=== PATIENT | female | born 1945 | race Caucasian/White ===

== ENCOUNTER 2016-09-23 07:18 | Inpatient (IN) ==
[2016-09-19 16:34] LABS: Basophils # (Auto) 0.1 K/mcL (0.0-0.3); Basophils % (Auto) 0.5 % (0.0-2.0); Eosinophils # (Auto) 0.2 K/mcL (0.0-0.7); Eosinophils % (Auto) 1.6 % (0.0-7.0); Granulocytes % (Auto) 63.5 % (38.0-78.0); Lymphocytes # (Auto) 3.3 K/mcL (1.5-4.8); Lymphocytes % (Auto) 23.2 % (15.5-49.0); Mean Cell Volume 85.1 fL (80.0-100.0); Mean Corpuscular Hemoglobin 28.1 pg (26.0-34.0); Monocytes # (Auto) 1.6 K/mcL (0.1-0.9); Monocytes % (Auto) 11.2 % (1.0-12.0); Platelet Count 414 K/mcL (140-440); RBC 4.69 M/mcL (4.00-5.20)
[2016-09-19 16:56] LABS: Blood Urea Nitrogen 15 mg/dl (8-23)
[2016-09-22 18:45] LABS: Appearance,Urine HAZY; Bacteria,Urine 0 /hpf (0); Bilirubin,Urine NEG (NEG); Color,Urine YELLOW; Glucose,Urine (UA) NEGATIVE (NEG); Leukocyte Esterase,Urine 500 /uL (NEG); Nitrate,Urine NEG (NEG); Protein,Urine NEG (NEG); Specific Gravity,Urine 1.015 (1.000-1.035); Urine Blood NEG mg/dL (<0.03); Urine RBC 3 /hpf (0-1); Urine Squamous Epithelial Cell 12 /hpf (0-4); Urine Transitional Epi Cells 1 /hpf (0-2); Urine WBC 38 /hpf (0-4); Urobilinogen,Urine NEG (NEG)
[~2016-09-23 07:18] MED LIST: ACETAMINOPHEN 500 MG TABLET PO SCH; CELECOXIB 200 MG CAPSULE PO SCH; PREGABALIN 75 MG CAPSULE PO SCH; ceFAZolin 1 GM VIAL IV SCH; oxyCODONE 10 MG TAB.ER.12H PO SCH
[2016-09-23] MEDS ORDERED: IPRATROPIUM/ALBUTEROL 3 ML AMPUL.NEB NEB ONE ×2 (10:36→10:37)
[2016-09-23] MEDS ORDERED: MIDAZOLAM 2 MG/2 ML VIAL IV ONE (11:00)
[2016-09-23] MEDS ORDERED: SUCCINYLCHOLINE 20 MG/ML ML IV ONE (11:00)
[2016-09-23] MEDS ORDERED: DEXAMETHASONE 10 MG/ML VIAL IV ONE (11:00)
[2016-09-23] MEDS ORDERED: LIDOCAINE HCL/PF 100 MG/5 ML SYRINGE IV ONE (11:00)
[2016-09-23] MEDS ORDERED: KETAMINE 100 MG/ML ML IV ONE (11:00)
[2016-09-23] MEDS ORDERED: ONDANSETRON 4 MG/2 ML VIAL IV ONE (11:00)
[2016-09-23] MEDS ORDERED: PROPOFOL 200 MG/20 ML VIAL IV ONE (11:00)
[2016-09-23] MEDS ORDERED: PHENYLEPHRINE 10 MG/ML VIAL IV ONE (11:00)
[2016-09-23] MEDS ORDERED: TRANEXAMIC ACID 1,000 MG/10 ML VIAL IV ONE ×2 (11:00→12:33)
[2016-09-23] MEDS ORDERED: GENTAMICIN SULFATE 800 MG/20 ML VIAL IR ONE (11:24)
[2016-09-23] MEDS ORDERED: diphenhydrAMINE 50 MG/ML VIAL IV PRN (12:13)
[2016-09-23] MEDS ORDERED: PROMETHAZINE 25 MG/ML VIAL IV PRN (12:13)
[2016-09-23] MEDS ORDERED: FLUMAZENIL 0.1 MG/ML ML IV PRN (12:13)
[2016-09-23] MEDS ORDERED: ePHEDrine 50 MG/ML AMPUL IV PRN (12:13)
[2016-09-23] MEDS ORDERED: METHOCARBAMOL 1,000 MG/10 ML VIAL IV PRN (12:13)
[2016-09-23] MEDS ORDERED: MEPERIDINE 50 MG/ML SYRINGE IM PRN (12:13)
[2016-09-23] MEDS ORDERED: NALOXONE HCL 0.4 MG/ML VIAL IV PRN (12:13)
[2016-09-23] MEDS ORDERED: ONDANSETRON 4 MG/2 ML VIAL IV PRN ×2 (12:13→12:33)
[2016-09-23] MEDS ORDERED: HYDROmorphone 2 MG/ML SYRINGE IV PRN ×2 (12:13→12:33)
[2016-09-23] MEDS ORDERED: IPRATROPIUM/ALBUTEROL 3 ML AMPUL.NEB NEB PRN (12:13)
[2016-09-23] MEDS ORDERED: MEPERIDINE 25 MG/ML SYRINGE IV PRN (12:13)
[2016-09-23] MEDS ORDERED: LACTATED RINGERS 250 ML IV PRN (12:13)
[2016-09-23] MEDS ORDERED: fentaNYL 100 MCG/2 ML VIAL IV PRN (12:13)
[2016-09-23] MEDS ORDERED: BENZOCAINE/MENTHOL 1 LOZENGE PO PRN ×2 (12:13→12:33)
[2016-09-23] MEDS ORDERED: PROMETHAZINE 25 MG/ML VIAL IM PRN (12:13)
[2016-09-23] MEDS ORDERED: LACTATED RINGERS 1,000 ML IV SCH (12:15)
[2016-09-23] MEDS ORDERED: FLEETS ADULT ENEMA PR PRN (12:33)
[2016-09-23] MEDS ORDERED: MAGNESIUM HYDROXIDE 30 ML ORAL.SUSP PO PRN (12:33)
[2016-09-23] MEDS ORDERED: POLYETHYLENE GLYCOL 3350 17 GM PACKET PO PRN (12:33)
[2016-09-23] MEDS ORDERED: ACETAMINOPHEN 325 MG TABLET PO PRN (12:33)
[2016-09-23] MEDS ORDERED: TEMAZEPAM 15 MG CAPSULE PO PRN (12:33)
[2016-09-23] MEDS ORDERED: BISACODYL 10 MG SUPP.RECT PR PRN (12:33)
[2016-09-23] MEDS ORDERED: KETOROLAC 15 MG/ML VIAL IV PRN (12:33)
[2016-09-23] MEDS ORDERED: EMOLL TOPICAL PRN (12:37)
[2016-09-23] MEDS ORDERED: traMADol 50 MG TABLET PO PRN (12:37)
[2016-09-23] MEDS ORDERED: CLOBETASOL PROPIONATE TOPICAL PRN (12:37)
--- NOTE | 2016-09-23 13:26 | XRay Report ---
HISTORY: Reason for Exam:Post-Op Total Hip FINDINGS: There is a well-positioned left total hip prosthesis. No fracture is present. There are dystrophic calcifications adjacent to the greater trochanters bilaterally. Moderate disc space narrowing and arthritis is present at L4-5 and possibly L5-S1. IMPRESSION: Well-positioned left hip prosthesis Interpreted and Authenticated by: Isacc Horne 09/23/16
--- NOTE | 2016-09-23 13:52 | Operative Note ---
DATE OF OPERATION: 09/23/2016 PREOPERATIVE DIAGNOSIS: Left hip degenerative arthritis. POSTOPERATIVE DIAGNOSIS: Left hip degenerative arthritis. PROCEDURE: Left total hip arthroplasty. SURGEON: Baldemar Zhao MD. MIXING TECHNICIAN: Monty Rice PA-C. ANESTHESIA: General LMA anesthesia. COMPLICATIONS: None. IMPLANTS: A size 50 mm cup with a 35 mm screw as well as a dual mobility liner, a size 5 cementless stem, a ceramic head with neutral neck length and dual mobility ball. ESTIMATED BLOOD LOSS: About 20 mL. COMPLICATIONS: None. DESCRIPTION OF PROCEDURE: The patient was brought to the operating room and put to sleep with general LMA anesthesia. Once asleep, the patient had the left hip sterilely prepped and draped in the usual sterile fashion. Once this was confirmed as the operative site, both by x-ray and time out and initials, the hip was sterilely prepped and draped in the usual sterile fashion. We made a superior posterior approach. This went through the fascial layer. A Charnley retractor was placed. A superior posterior release of the capsule was done and dislocated the hip. Once this was done and we dislocated the hip, we then made our neck cut at 34 mm from the center of hip rotation and then broached up to a size 5. We trialed the size 5 stem on the broach, a neutral length ball. This seemed a little long. We reamed up on the acetabulum to size 50, implanted a 50 cup with a 35 mm screw and a dual mobility liner. Once this was done, we then broached up to size 5 on the femur again. We countersunk the stem, neutral neck length and dual mobility ball was confirmed, and the x-ray confirmed equal leg lengths. We then placed the final implants with a size 5 femur, a ceramic 28 head, neutral neck length and a dual mobility outer ball. This seemed to fit very well with stability up to 80 degrees of internal rotation with the hip abducted. The patient tolerated this well without complication. We irrigated thoroughly and repaired the posterior capsule with #2 Ethibond, closed the fascial layer with#2 Ethibond and #1 Vicryl, and closed the skin with 2-0 Vicryl and lynda superficially. The patient tolerated this well. There was no complication. JANES:ayana Job ID: [id number] Doc ID: [id number] Baldemar Zhao MD
[2016-09-23] MEDS: 0.9 % SODIUM CHLORIDE 10 ML SYRINGE IV SCH ×2 (14:55→22:08)
--- NOTE | 2016-09-23 15:55 | Brief Operative Note ---
Date of procedure: 09/23/16 Pre-op diagnosis: left hip djd Post-op diagnosis: same Procedure: left hip alfred Grafts/Implants: Yes Anesthesia: GETA Complications: none Surgeon: Baldemar Zhao Silk Weaver: Monty Rice Estimated blood loss (cc): 100 Specimens Removed/Pathology: none sent Condition: stable Disposition: PACU
[2016-09-23] MEDS: HYDROCODONE/APAP 7.5/325MG TABLET PO PRN ×2 (16:15→23:58)
[2016-09-23] MEDS: 0.45 % SODIUM CHLORIDE 1,000 ML IV SCH (16:16)
[2016-09-23] MEDS: ceFAZolin 1 GM VIAL IV SCH (19:28)
[2016-09-23] MEDS ORDERED: SENNOSIDES 1 TABLET PO SCH (21:00)
[2016-09-23] MEDS: DOCUSATE SODIUM 100 MG CAPSULE PO SCH (22:05)
[2016-09-23] MEDS: Budesonide/Formoterol Fumarate [Symbicort] 160/4.5 mcg Inhaler INH SCH (22:06)
[2016-09-23] MEDS: ASPIRIN 325 MG ENTERIC COATED TABLET PO SCH (22:06)
[2016-09-23] MEDS: sulfaSALAzine 500 MG TABLET PO SCH (22:07)
[2016-09-23] MEDS: CELECOXIB 200 MG CAPSULE PO SCH (22:09)
[2016-09-24] MEDS: 0.45 % SODIUM CHLORIDE 1,000 ML IV SCH ×2 (02:20→09:14)
[2016-09-24] MEDS: ceFAZolin 1 GM VIAL IV SCH (03:32)
[2016-09-24] MEDS: 0.9 % SODIUM CHLORIDE 10 ML SYRINGE IV SCH (05:48)
[2016-09-24] MEDS ORDERED: LEVOTHYROXINE 125 MCG TABLET PO SCH (07:30)
[2016-09-24] MEDS ORDERED: LEVOTHYROXINE 100 MCG TABLET PO SCH (07:30)
[2016-09-24] MEDS ORDERED: PANTOPRAZOLE 40 MG TABLET PO SCH (07:30)
[2016-09-24] MEDS ORDERED: FLUTICASONE PROPIONATE SPRAY.NAS NS SCH (09:00)
[2016-09-24] MEDS ORDERED: FOLIC ACID 1 MG TABLET PO SCH (09:00)
[2016-09-24] MEDS ORDERED: CALCIUM W/VIT D3 500 MG TABLET PO SCH (09:00)
[2016-09-24] MEDS ORDERED: OLMESARTAN MEDOXOMIL 20 MG TABLET PO SCH (09:00)
[2016-09-24] MEDS ORDERED: HYDROCHLOROTHIAZIDE 12.5 MG CAPSULE PO SCH (09:00)
[2016-09-24] MEDS ORDERED: MULTIVIT,THER IRON,CA,FA & MIN 1 TABLET PO SCH (09:00)
[2016-09-24] MEDS ORDERED: FLAXSEED OIL 2000 MG PO SCH (09:00)
[2016-09-24] MEDS ORDERED: ESTROPIPATE 0.75 MG TABLET PO SCH (09:00)
[2016-09-24] MEDS ORDERED: VITAMIN D3 1,000 UNIT TABLET PO SCH (09:00)
[2016-09-24] MEDS ORDERED: ASPIRIN 81 MG TAB.CHEW CHEWED SCH (09:00)
[2016-09-24] MEDS ORDERED: sulfaSALAzine 500 MG TABLET PO SCH (09:00)
[2016-09-24] MEDS: ASPIRIN 325 MG ENTERIC COATED TABLET PO SCH (09:00)
[2016-09-24] MEDS: DOCUSATE SODIUM 100 MG CAPSULE PO SCH (09:01)
[2016-09-24] MEDS: CELECOXIB 200 MG CAPSULE PO SCH (09:01)
[2016-09-24] MEDS: Budesonide/Formoterol Fumarate [Symbicort] 160/4.5 mcg Inhaler INH SCH (09:05)
--- NOTE | 2016-09-24 10:04 | Orthopedic Progress Note ---
Subjective Patient information: Note initiated : 09/24/16 at 10:03 am Service Date, if different from initiated Date: [] Patient: Lisa Jauregui 71 y/o F admitted on 09/23/16 for Left Total Hip Arthroplasty. Chief Complaint: [minimal pain and eating well] Objective Vital signs: Vital Signs Temp Pulse Pulse Resp BP BP Pulse Ox 09/24/16 09:18 96 09/24/16 06:20 97.7 F 20 142/73 93 09/24/16 03:30 97.5 F 83 16 128/64 96 09/24/16 03:29 96 09/24/16 02:00 94 09/24/16 00:00 96 09/23/16 23:28 97.4 F 95 H 16 105/66 95 09/23/16 22:00 94 09/23/16 20:00 98 09/23/16 19:34 97.2 F 93 H 18 120/71 98 09/23/16 18:12 95 09/23/16 15:54 117/48 95 09/23/16 15:27 96 09/23/16 15:20 104/67 94 09/23/16 14:53 96 09/23/16 14:50 114/52 96 09/23/16 14:28 139/72 100 09/23/16 14:05 111/73 99 09/23/16 13:50 111/77 99 09/23/16 13:35 96.3 F L 16 113/75 98 09/23/16 13:22 97.3 F 86 15 125/57 98 09/23/16 13:10 90 12 121/58 98 09/23/16 12:54 89 17 118/67 100 09/23/16 12:48 81 80 10 L 107/49 100 09/23/16 12:43 98.2 F 87 12 L 12 98/42 95 Intake and Output 09/23/16 09/24/16 09/24/16 21:59 05:59 13:59 Intake Total 440 / 440 2036 360 / 360 Output Total 475 / 475 1000 / 1000 550 / 550 Balance -35 / -35 1037 / 1037 -190 / -190 Intake: IV 1000 / 1000 Sodium Chloride 0.45% 1, 1000 / 1000 000 ml @ 100 mls/hr IV . Q10H [facility] Rx#:[id number] Oral 440 / 440 1037 / 1037 360 / 360 Output: Void Amount 475 / 475 1000 / 1000 550 / 550 Other: Meal Dinner Egg salad sandwhich Breakfast Percent of Meal Consumed 75% 100% 75% Feeding Ability Independent # Voids 1 Weight 217 lb Intake & Output: Intake & Output 09/23/16 09/24/16 09/24/16 21:59 05:59 13:59 Intake Total 440 / 440 2036 / 2036 360 / 360 Output Total 475 / 475 1000 / 1000 550 / 550 Balance -35 / -35 1037 / 1037 -190 / -190 Weight 217 lb Intake: IV 1000 / 1000 Sodium Chloride 0.45% 1, 1000 / 1000 000 ml @ 100 mls/hr IV . Q10H [facility] Rx#:[id number] Oral 440 / 440 1037 / 1037 360 / 360 Output: Void Amount 475 / 475 1000 / 1000 550 / 550 Other: Meal Dinner Egg salad sandwhich Breakfast Percent of Meal Consumed 75% 100% 75% Feeding Ability Independent # Voids 1 Incision: Yes healing Incision clean and dry: Yes Dressing: Yes clean Weight bearing status: full Neurological exam IM: Yes oriented X3, Yes neurovascular intact Extremities exam IM: Yes pedal edema, Yes Foot pink and warm, Yes neurovascular intact - Labs CBC & BMP: 09/24/16 04:18 09/19/16 15:51 Labs: Orthopedic Labs 09/19/16 15:51 PT 12.8 INR 0.9 APTT 26 09/24/16 09/19/16 04:18 15:51 Hgb 13.2 Hct 31.3 L 39.9
--- NOTE | 2016-09-24 10:10 | Discharge Summary ---
Ortho Discharge - [facility] - Patient Instructions Diet: Regular Diet Activity: activity as tolerated, weight bearing as tolerated Total Hip Protocol: Follow activity instructions as provided by Physical Therapy. Dressing Care: Donaldo Ag - leave on for 5 days Patient Education: Total Hip Replacement (DC) Additional Instructions: Discharge Instructions: Do the exercises at home that physical therapy gave you. You are scheduled to start physical therapy at [facility] ([phone]) on September 28 @ 9:30 am, please arrive 15 minutes early for paperwork. Your orders will be faxed to them. Take your photo ID, insurance cards, and current medication list with you to your first physical therapy appointment. Take your prescription to pick and shovel man any medication or equipment (such as walker, crutches, toilet riser or C.P.M.) Wear comfortable clothing for your physical therapy. Weight bearing as tolerated. You have Dermabond (a dressing with a mesh-like appearance), leave open to air. Do not remove this dressing. You may start showering on post op day #2. The Dermabond dressing can get wet, do not scrub dressing. Pat dry. To avoid constipation while taking any narcotic pain medication, take an over the counter stool softener/laxative. Use ice packs as directed, on for 20 minutes at a time throughout the day. This and elevation will help with pain and swelling. Call your physician for fevers above 100.5 or pain not controlled by medication. Your prescriptions are with your discharge information. Some medications were electronically transmitted to your pharmacy of choice. - Follow Up Plan Follow Up Appointments: Baldemar Zhao MD [Physician] - 10/06/16 10:40 am Disposition: Home, Self-Care Prognosis: Good Rehab Potential: Good I certify that the patient requires SNF services: No Overall status at discharge: patient is progressing back to baseline - Orders For Discharge Prescriptions: Hydrocodone/APAP 7.5/325Mg [[place] 7.5/325Mg] 7.5 mg PO Q4HP PRN #60 tablet PRN Reason: Pain Additional Discharge Orders: Physical Therapy at Discharge - [facility] Location: Determined By Patient Toilet Riser Discharge Order Location: Determined By Patient Walker Location: Determined By Patient
[2016-09-24] MEDS: HYDROCODONE/APAP 7.5/325MG TABLET PO PRN (10:39)
[2016-09-24] MEDS: sulfaSALAzine 500 MG TABLET PO SCH (14:17)
== END 2016-09-24 12:39 | disposition home or self-care (01) | DRG 470 ==
LOC: MEDSUR 07:18
PROVIDERS: ADMIT Orthopaedic Surgery; ATTEND Orthopaedic Surgery

== ENCOUNTER 2017-08-07 06:16 | Inpatient (IN) ==
[2017-08-01 15:12] LABS: Blood Urea Nitrogen 10 mg/dl (8-23)
[2017-08-01 15:13] LABS: Basophils # (Auto) 0.1 K/mcL (0.0-0.3); Basophils % (Auto) 0.4 % (0.0-2.0); Eosinophils # (Auto) 0.4 K/mcL (0.0-0.7); Eosinophils % (Auto) 2.6 % (0.0-7.0); Granulocytes % (Auto) 68.5 % (38.0-78.0); Lymphocytes # (Auto) 2.7 K/mcL (1.5-4.8); Lymphocytes % (Auto) 19.8 % (15.5-49.0); Mean Cell Volume 84.5 fL (80.0-100.0); Mean Corpuscular HGB Conc 32.6 g/dL (31.0-36.0); Mean Corpuscular Hemoglobin 27.5 pg (26.0-34.0); Monocytes # (Auto) 1.2 K/mcL (0.1-0.9); Monocytes % (Auto) 8.7 % (1.0-12.0); Platelet Count 413 K/mcL (140-440); Red Cell Distribution Width 15.7 % (11.5-14.5)
[2017-08-01 16:08] LABS: Appearance,Urine HAZY; Bacteria,Urine 0 /hpf (0); Bilirubin,Urine NEG (NEG); Color,Urine YELLOW; Glucose,Urine (UA) NEGATIVE (NEG); Leukocyte Esterase,Urine 75 /uL (NEG); Protein,Urine NEG (NEG); Specific Gravity,Urine 1.011 (1.000-1.035); Urine Blood NEG mg/dL (<0.03); Urine RBC 1 /hpf (0-1); Urine Squamous Epithelial Cell 10 /hpf (0-4); Urine Transitional Epi Cells < 1 /hpf (0-2); Urine WBC 7 /hpf (0-4); Urobilinogen,Urine NEG (NEG)
[~2017-08-07 06:16] MED LIST changes: -CELECOXIB 200 MG CAPSULE PO SCH; +IPRATROPIUM/ALBUTEROL 3 ML AMPUL.NEB NEB PRN; +SCOPOLAMINE 1 PATCH PATCH TOPICAL PRN
[2017-08-07] MEDS: CELECOXIB 200 MG CAPSULE PO SCH ×2 (07:42→20:08)
[2017-08-07] MEDS ORDERED: GENTAMICIN SULFATE 800 MG/20 ML VIAL IR ONE (08:45)
[2017-08-07] MEDS ORDERED: PROPOFOL 200 MG/20 ML VIAL IV ONE (09:10)
[2017-08-07] MEDS ORDERED: KETAMINE 100 MG/ML ML IV ONE (09:10)
[2017-08-07] MEDS ORDERED: MIDAZOLAM 2 MG/2 ML VIAL IV ONE (09:10)
[2017-08-07] MEDS ORDERED: HYDROmorphone 2 MG/ML VIAL IV ONE (09:10)
[2017-08-07] MEDS ORDERED: PHENYLEPHRINE 10 MG/ML VIAL IV ONE (09:10)
[2017-08-07] MEDS ORDERED: ONDANSETRON 4 MG/2 ML VIAL IV ONE (09:10)
[2017-08-07] MEDS ORDERED: ROPIVACAINE HCL/PF 30 ML VIAL IJ ONE (09:10)
[2017-08-07] MEDS ORDERED: METOPROLOL TARTRATE 5 MG/5 ML VIAL IV ONE (09:10)
[2017-08-07] MEDS ORDERED: LIDOCAINE HCL/PF 100 MG/5 ML SYRINGE IV ONE (09:10)
[2017-08-07] MEDS ORDERED: TRANEXAMIC ACID 1,000 MG/10 ML VIAL IV ONE ×2 (09:10→10:17)
[2017-08-07] MEDS ORDERED: GLYCOPYRROLATE 0.2 MG/ML VIAL IV ONE (09:10)
[2017-08-07] MEDS ORDERED: METHOCARBAMOL 1,000 MG/10 ML VIAL IV PRN (10:13)
[2017-08-07] MEDS ORDERED: IPRATROPIUM/ALBUTEROL 3 ML AMPUL.NEB NEB PRN (10:13)
[2017-08-07] MEDS ORDERED: MEPERIDINE 25 MG/ML SYRINGE IV PRN (10:13)
[2017-08-07] MEDS ORDERED: PROMETHAZINE 25 MG/ML VIAL IV PRN (10:13)
[2017-08-07] MEDS ORDERED: LACTATED RINGERS 1,000 ML IV SCH (10:15)
[2017-08-07] MEDS ORDERED: BISACODYL 10 MG SUPP.RECT PR PRN (10:17)
[2017-08-07] MEDS ORDERED: oxyCODONE/APAP 5/325MG TABLET PO PRN (10:17)
[2017-08-07] MEDS ORDERED: FLEETS ADULT ENEMA PR PRN (10:17)
[2017-08-07] MEDS ORDERED: HYDROmorphone 2 MG/ML VIAL IV PRN (10:17)
[2017-08-07] MEDS ORDERED: BENZOCAINE/MENTHOL 1 LOZENGE PO PRN (10:17)
[2017-08-07] MEDS ORDERED: POLYETHYLENE GLYCOL 3350 17 GM PACKET PO PRN (10:17)
[2017-08-07] MEDS ORDERED: ACETAMINOPHEN 325 MG TABLET PO PRN (10:17)
[2017-08-07] MEDS ORDERED: MAGNESIUM HYDROXIDE 30 ML ORAL.SUSP PO PRN (10:17)
[2017-08-07] MEDS ORDERED: KETOROLAC 15 MG/ML VIAL IV PRN (10:17)
[2017-08-07] MEDS ORDERED: TEMAZEPAM 15 MG CAPSULE PO PRN (10:17)
[2017-08-07] MEDS ORDERED: traMADol 50 MG TABLET PO PRN (10:21)
[2017-08-07] MEDS ORDERED: CLOBETASOL TOPICAL PRN (10:21)
--- NOTE | 2017-08-07 10:24 | Brief Operative Note ---
Date of procedure: 08/07/17 Pre-op diagnosis: right shoulder rca Post-op diagnosis: same Procedure: right reverse tsa Grafts/Implants: Yes Anesthesia: MERLENEA Surgeon: Baldemar Zhao Sewer Pipe Cleaner: Monty Rice Estimated blood loss (cc): 20 Specimens Removed/Pathology: none sent Condition: stable Disposition: PACU
[2017-08-07] MEDS: fentaNYL 100 MCG/2 ML VIAL IV PRN ×4 (11:00→11:11)
--- NOTE | 2017-08-07 11:06 | XRay Report ---
HISTORY: Reason for Exam:Post-OP Total Shoulder FINDINGS: There is a well-positioned reverse total shoulder prosthesis. No fracture or abnormal soft tissue calcification is present. There are spurs along the top of the acromion and at the AC joint. IMPRESSION: Well-positioned right shoulder prosthesis Interpreted and Authenticated by: Iscac Horne 08/07/17
--- NOTE | 2017-08-07 11:21 | Operative Note ---
DATE OF OPERATION: 08/07/2017 PREOPERATIVE DIAGNOSIS: Right shoulder rotator cuff arthropathy. POSTOPERATIVE DIAGNOSIS: Right shoulder rotator cuff arthropathy. PROCEDURE: Right reverse total shoulder. SURGEON: Baldemar Zhao M.D. BREAKER UP: Monty Rice PA-C. ANESTHESIA: General LMA anesthesia. COMPLICATIONS: None. DESCRIPTION OF PROCEDURE: The patient was brought to the operating room and put to sleep with general LMA anesthesia. Once asleep, the patient had the right shoulder sterilely prepped and draped in the usual sterile fashion. Once a timeout had been performed and Ioban placed over the skin, we proceeded with the case. We exposed the joint through a deltopectoral approach, released the remaining subscap noting that there was complete rupture of the supraspinatus and infraspinatus. No biceps tendon was visualized. We then entered the joint and placed the retractors. Once this was done, we then dislocated the head, and this was cut in a 135 degree neck angle with 20 degrees of retroversion. Once done, I irrigated thoroughly, subluxed the humerus posteriorly, and then placed retractors around the joint and performed a 360 degree capsule release removing the labrum. Once this was done, I irrigated thoroughly and placed the pin centrally at 10 degrees of inclination. Once done, I then reamed up to the size for a 36 head and implanted the metaglene with a central screw 32, superior screw 36, inferior screw 32, and anterior screw 32. Excellent purchase was achieved. We irrigated thoroughly and implanted a 36 mm head with 2 mm of the eccentricity and 2 mm of offset. We irrigated thoroughly and then prepared the humerus. This was broached up to a size 10 stem which fit very nicely. We trialed the size 10 in a standard and then a +2 poly. The +2 poly was the best fitted. I then implanted the size 10 stem with cement on the distal tip of the stem to help with security and then tapped this into place, placing a +2 poly liner. This was tapped onto the implant and reduced. This had a 1 mm shuck test. I irrigated thoroughly and then closed the deltopectoral approach with #2 Vicryl and closed the skin with 2-0 Vicryl and adhesive closure. The patient tolerated this well. A DonJoy sling was fitted and given to the patient at the end of the case. RBH:ayana Job ID: [id number] Doc ID: [id number] Baldemar Zhao MD
[2017-08-07] MEDS ORDERED: FISH OIL 1,000 MG CAPSULE PO SCH (12:00)
[2017-08-07] MEDS: 0.45 % SODIUM CHLORIDE 1,000 ML IV SCH (12:17)
[2017-08-07] MEDS: sulfaSALAzine 500 MG TABLET PO SCH ×2 (12:17→20:08)
[2017-08-07] MEDS: 0.9 % SODIUM CHLORIDE 10 ML SYRINGE IV SCH ×2 (15:01→20:09)
[2017-08-07] MEDS: ONDANSETRON 4 MG/2 ML VIAL IV PRN ×2 (15:33→18:42)
[2017-08-07] MEDS: ceFAZolin 1 GM VIAL IV SCH (17:32)
[2017-08-07] MEDS: DOCUSATE SODIUM 100 MG CAPSULE PO SCH (20:08)
[2017-08-07] MEDS: Budesonide/Formoterol Fumarate [Symbicort] 160-4.5 mcg Inhaler INH SCH (20:08)
[2017-08-07] MEDS: N OU SCH (20:09)
[2017-08-07] MEDS ORDERED: SENNOSIDES 1 TABLET PO SCH (21:00)
[2017-08-08] MEDS: 0.45 % SODIUM CHLORIDE 1,000 ML IV SCH ×2 (00:20→06:44)
[2017-08-08] MEDS: ceFAZolin 1 GM VIAL IV SCH (00:25)
[2017-08-08] MEDS: 0.9 % SODIUM CHLORIDE 10 ML SYRINGE IV SCH (04:58)
[2017-08-08] MEDS ORDERED: LEVOTHYROXINE 125 MCG TABLET PO SCH (07:30)
[2017-08-08] MEDS ORDERED: LEVOTHYROXINE 100 MCG TABLET PO SCH (07:30)
--- NOTE | 2017-08-08 07:56 | Orthopedic Progress Note ---
Subjective Patient information: Note initiated : 08/08/17 at 7:56 am Service Date, if different from initiated Date: [] Patient: Lisa Jauregui 71 y/o F admitted on 08/07/17 for Right Reverse Total Shoulder with bicep tendon . Chief Complaint: [] Pt is stable this morning on post operative day 1 without any significant concerns or complaints. Patients vital signs have remained stable. Patients dressing is dry and is grossly instact from a neurovascular and motor standpoint. Patients 10 point ROS is otherwise negative. Objective Vital signs: Vital Signs Temp Pulse Resp BP Pulse Ox 08/08/17 07:41 98.1 F 81 12 126/76 95 08/08/17 04:00 97.7 F 96 H 12 151/87 94 08/08/17 00:25 97.9 F 88 12 123/73 96 08/07/17 20:00 97.7 F 91 H 12 143/73 97 08/07/17 16:00 97.6 F 18 129/76 98 08/07/17 13:45 123/78 98 08/07/17 13:15 120/77 99 08/07/17 12:45 133/60 100 08/07/17 12:30 131/79 99 08/07/17 12:15 138/85 99 08/07/17 12:00 126/80 99 08/07/17 11:44 146/73 99 08/07/17 11:20 98.1 F 88 12 135/58 99 08/07/17 10:59 96.8 F L 88 14 148/86 99 08/07/17 10:53 91 H 16 108/90 98 08/07/17 10:48 96 H 14 162/76 100 08/07/17 10:43 97.0 F 95 H 12 145/69 99 Intake and Output 08/07/17 08/08/17 08/08/17 21:59 05:59 13:59 Intake Total 360 / 360 1440 / 1440 640 / 640 Output Total 425 / 425 1250 / 1250 375 / 375 Balance -65 / -65 190 / 190 265 / 265 Intake: IV 1000 / 1000 640 / 640 Sodium Chloride 0.45% 1,000 ml 1000 / 1000 640 / 640 @ 100 mls/hr IV .Q10H [facility] Rx#: [id number] Oral 360 / 360 440 / 440 Output: Void Amount 225 / 225 1250 / 1250 375 / 375 Emesis 200 / 200 Other: Meal soup Percent of Meal Consumed 75% Feeding Ability Independent # Voids 1 Weight 202 lb Intake & Output: Intake & Output 08/07/17 08/08/17 08/08/17 21:59 05:59 13:59 Intake Total 360 / 360 1440 / 1440 640 / 640 Output Total 425 / 425 1250 / 1250 375 / 375 Balance -65 / -65 190 / 190 265 / 265 Weight 202 lb Intake: IV 1000 / 1000 640 / 640 Sodium Chloride 0.45% 1,000 ml 1000 / 1000 640 / 640 @ 100 mls/hr IV .Q10H [facility] Rx#: [id number] Oral 360 / 360 440 / 440 Output: Void Amount 225 / 225 1250 / 1250 375 / 375 Emesis 200 / 200 Other: Meal soup Percent of Meal Consumed 75% Feeding Ability Independent # Voids 1 Incision: Yes healing Incision clean and dry: Yes Dressing: Yes clean Weight bearing status: full Neurological exam IM: Yes motor sensory intact, Yes neurovascular intact Extremities exam IM: Yes Foot pink and warm, Yes neurovascular intact - Labs CBC & BMP: 08/01/17 11:55 08/01/17 11:54 Labs: Orthopedic Labs 08/01/17 11:54 PT 12.9 INR 1.0 APTT 28 08/01/17 11:55 Hgb 13.5 Hct 41.4 Assessment and Plan (1) Hx of total shoulder replacement The patient has been educated regarding dressing care, Physical Therapy recommendations, home exercises, restrictions, and follow up appointments. The patient has had all necessary DME prescribed. The patient has remained relatively stable during their hospital course. I consulted with Dr Zhao regarding her O2 concerns as well as if he wants a Hospitalist Consult for her. Status: Acute
--- NOTE | 2017-08-08 07:59 | Discharge Summary ---
Ortho Discharge - [facility] - Patient Instructions Diet: Regular Diet Activity: activity as tolerated, weight bearing as tolerated Total Shoulder Protocol: Leave immobilizer in place except for bathing and ROM. Abduction pillow. Continue to wear sling until seen by physician. Codman Pendulum : These exercises use momentum produced by your body to move your shoulder joint. Bend your knees and shift your weight to your front leg, then back, allowing your arm to swing in the same directions. Using the same technique, alternately shift your weight between your right and left legs, allowing your arm to swing from side to side. These exercises are also performed in counterclockwise and clockwise circular motions. Typically these exercises are performed several times per day, for a set number repetitions or minutes, such as 20 times in a row or 5 minutes at a time. Dressing Care: May shower in 2 days - Problem Maintenance (1) Hx of total shoulder replacement Status: Acute - Follow Up Plan Follow Up Appointments: Baldemar Zhao MD [Physician] - 08/22/17 9:20 am Disposition: Home, Self-Care Prognosis: Good Rehab Potential: Good I certify that the patient requires SNF services: No Overall status at discharge: patient is progressing back to baseline - Orders For Discharge Prescriptions: Docusate Sodium [Colace] 100 mg PO BID #60 cap oxyCODONE/APAP [Percocet 5-325 mg] 1 - 2 tab PO Q4HP PRN #75 tab PRN Reason: Pain Level 3-6
[2017-08-08] MEDS ORDERED: ASPIRIN 81 MG TAB.CHEW CHEWED SCH (09:00)
[2017-08-08] MEDS ORDERED: FLAXSEED OIL 2000 MG PO SCH (09:00)
[2017-08-08] MEDS ORDERED: ESTROPIPATE 0.75 MG TABLET PO SCH (09:00)
[2017-08-08] MEDS ORDERED: MULTIVIT,THER IRON,CA,FA & MIN 1 TABLET PO SCH (09:00)
[2017-08-08] MEDS ORDERED: HYDROCHLOROTHIAZIDE PO SCH (09:00)
[2017-08-08] MEDS ORDERED: sulfaSALAzine 500 MG TABLET PO SCH (09:00)
[2017-08-08] MEDS ORDERED: VITAMIN D3 400 UNIT TABLET PO SCH (09:00)
[2017-08-08] MEDS ORDERED: FOLIC ACID 1 MG TABLET PO SCH (09:00)
[2017-08-08] MEDS ORDERED: CALCIUM W/VIT D3 500 MG TABLET PO SCH (09:00)
[2017-08-08] MEDS ORDERED: CANDESARTAN PO SCH (09:00)
[2017-08-08] MEDS: DOCUSATE SODIUM 100 MG CAPSULE PO SCH (09:41)
[2017-08-08] MEDS: CELECOXIB 200 MG CAPSULE PO SCH (09:42)
[2017-08-08] MEDS: N OU SCH (09:50)
[2017-08-08] MEDS: Budesonide/Formoterol Fumarate [Symbicort] 160-4.5 mcg Inhaler INH SCH (09:50)
== END 2017-08-08 10:10 | disposition home or self-care (01) | DRG 483 ==
LOC: MEDSUR 06:16
PROVIDERS: ADMIT Orthopaedic Surgery; ATTEND Orthopaedic Surgery